=== PATIENT | female | born 1995 ===

== ENCOUNTER 2019-10-19 20:41 | Inpatient (IN) ==
[2019-10-19 20:00] LABS: Amphetamine Screen,Urine Negative ng/mL (Cutoff=1000); Barbiturate Screen,Urine Negative ng/mL (Cutoff=200); Benzodiazepines Screen,Urine Negative ng/mL (Cutoff=200); Cannabinoid Screen,Urine Negative ng/mL (Cutoff = 50); Cocaine Screen,Urine Negative ng/mL (Cutoff= 300); Opiate Screen,Urine Negative ng/mL (Cutoff=300); Phencyclidine Screen,Urine Negative ng/mL (Cutoff=25)
[~2019-10-19 20:41] MED LIST: *HR* Nalbuphine 10 MG/ML AMPUL IVP PRN; Famotidine 20 MG/2 ML VIAL IVP PRN; Lidocaine 1% 20 ML MDV ID PRN; Metoclopramide 10 MG/2 ML VIAL IVP PRN; Naloxone 0.4 MG/ML INJ IVP PRN; Ringers Solution, Lactated 1,000 ML ONE
[2019-10-19] MEDS ORDERED: Ringers Solution, Lactated 1,000 ML IVC SCH (20:45)
[2019-10-19 20:53] LABS: Basophils % 0.1 %; Eosinophils % 0.3 %; Hematocrit 39.8 % (35.3-44.9); Immature Granulocytes % 0.3 % (0-4); Lymphocytes # 1.8 K/mcL (0.6-4.6); Lymphocytes % 14.1 %; Mean Corpuscular HGB Conc 35.2 g/dL (31.6-35.5); Mean Corpuscular Hemoglobin 29.8 pg (28.0-33.3); Mean Corpuscular Volume 84.7 fL (83.0-100.0); Mean Platelet Volume 11.5 fL (9.4-12.4); Monocytes % 7.6 %; Neutrophils # 9.9 K/mcL (1.6-8.9); Platelet Count 255 K/mcL (140-400); Red Cell Distribution Width 12.2 % (11.5-14.5); Segmented Neutrophils % 77.6 %; White Blood Count 12.7 K/mcL (4.3-11.1)
[2019-10-19] MEDS ORDERED: Bupivacaine-MPF 0.25% 10 ML VIAL EP ONE (21:03)
[2019-10-19] MEDS ORDERED: *HR* FentaNYL (PF) 100 MCG/2 ML VIAL EP ONE (21:03)
[2019-10-19] MEDS ORDERED: Epidural Premix (fent/bupiv) 110 ML EP ONE (21:11)
[2019-10-19] MEDS ORDERED: Epidural Premix (fent/bupiv) 110 ML EP SCH (21:15)
[2019-10-19] MEDS ORDERED: Ondansetron 4 MG/2 ML VIAL IVP PRN (21:26)
[2019-10-19] MEDS ORDERED: Oxytocin 20 units/ LR 1000 mL 20 UNIT/1,000 ML BAG IVC SCH (21:30)
[2019-10-19] MEDS ORDERED: Chloroprocaine/PF 20 ML VIAL INFILT ONE (22:10)
[2019-10-20] MEDS ORDERED: Ibuprofen 600 MG TABLET PO PRN (02:40)
[2019-10-20] MEDS ORDERED: Acetaminophen 325 MG TABLET PO PRN (07:22)
[2019-10-20] MEDS ORDERED: Rho Immune Globulin 1,500 UNIT SYRINGE IM PRN (07:22)
[2019-10-20] MEDS: Oxytocin 20 units/ LR 1000 mL 20 UNIT/1,000 ML BAG IVC SCH ×2 (07:44→07:55)
[2019-10-20] MEDS ORDERED: Prenatal Vit/FA 1 EACH TABLET PO SCH (09:00)
[2019-10-20 22:03] VITALS: BP 123/71
== END 2019-10-20 23:30 | disposition home or self-care (01) | DRG 807 ==
LOC: 1NENULAB → 1NENUOBS 10-20 02:14
PROVIDERS: ADMIT Advanced Practice Midwife; ATTEND Advanced Practice Midwife